=== PATIENT | male | born 1955 | race Caucasian/White ===

== ENCOUNTER → 2016-11-16 | Outpatient (CLI) | payer BC | LOC: COL.RAD 12:23 | DX: M12.88 Other specific arthropathies, not elsewhere classified, other specified site (principal); G62.89 Other specified polyneuropathies ==

== ENCOUNTER → 2018-03-30 | Outpatient (CLI) | payer BC | LOC: COL.RAD 03-24 12:30 | DX: S83.242A Other tear of medial meniscus, current injury, left knee, initial encounter (principal); S83.282A Other tear of lateral meniscus, current injury, left knee, initial encounter; M17.12 Unilateral primary osteoarthritis, left knee; M25.462 Effusion, left knee ==